=== PATIENT | female | born 1950 | race Caucasian/White ===

== ENCOUNTER → 2021-07-02 09:04 | Outpatient (CLI) | payer MEDICARE, SELFPAY ==
[2021-07-02 11:42] LABS: COVID19 -Nasal RAPID POSITIVE (Negative)
== END ==
PROVIDERS: Visit Provider Nurse Practitioner
DX: U07.1 COVID-19 (principal)
CPT/HCPCS: 87635

== ENCOUNTER → 2022-01-16 13:28 | Outpatient (CLI) | payer MEDICARE, SELFPAY ==
[2022-01-16 15:30] LABS: Influenza A - CEPHEID Flu A NEGATIVE (NEGATIVE); Influenza B - CEPHEID Flu B NEGATIVE (NEGATIVE)
[2022-01-16 15:54] LABS: COVID-19 CEPHEID PCR (VTM/NP) Negative (Negative)
== END ==
PROVIDERS: Visit Provider Physician Assistant
DX: J02.9 Acute pharyngitis, unspecified (principal); Z20.822 Contact with and (suspected) exposure to COVID-19
CPT/HCPCS: 0240U

== ENCOUNTER → 2023-05-10 09:48 | Outpatient (CLI) | payer MEDICARE, SELFPAY ==
--- NOTE | 2023-05-10 09:51 | DI.RAD.S_ITS ---
PROCEDURE: XR CERVICAL SPINE 2V OR 3V INDICATIONS: cervical spine pain left side worse TECHNIQUE: 3 view(s) of the cervical spine were acquired. COMPARISON: None. FINDINGS: Bones: No fractures or dislocations to the C7 level. The lateral masses of C1 appear intact on the odontoid view. No suspicious bony lesions. There are multilevel degenerative changes of the cervical spine with facet and uncovertebral arthropathy, disc height loss with degenerative endplate changes and spurring. This is most pronounced at C5-C6 and C6-C7. Possible minimal anterolisthesis of C6 on C7. Soft tissues: No prevertebral soft tissue swelling. IMPRESSION: Multilevel degenerative changes of the cervical spine as described above. Dictated by: Max Mae M.D. on 05/10/2023 at 10:44 Approved by: Max Mae M.D. on 05/10/2023 at 10:46
== END ==
PROVIDERS: PCP Family Medicine; Referring Provider Family Medicine; Visit Provider Family Medicine
DX: M47.812 Spondylosis without myelopathy or radiculopathy, cervical region (principal); M54.2 Cervicalgia
CPT/HCPCS: 72040

== ENCOUNTER → 2023-07-31 | Outpatient (CLI) | payer MEDICARE, SELFPAY ==
--- NOTE | 2023-07-31 07:55 | DI.MG.S_ITS ---
BILATERAL DIGITAL SCREENING MAMMOGRAM 3D/2D WITH CAD: 07/31/2023 CLINICAL: Routine screening. Baseline exam. No prior exams were available for comparison. Both breasts are heterogeneously dense, which may obscure small masses (category c / 51-75% glandular tissue). Current study was also evaluated with a Computer Aided Detection (CAD) system. No significant masses, calcifications, or other findings are seen in either breast. IMPRESSION: NEGATIVE There is no mammographic evidence of malignancy. A 1 year screening mammogram is recommended. Based on the Tyrer Cuzick model (a risk assessment model) the patient's lifetime risk is 7.7% and her 10 year risk is 6.3%. According to the ACR, ACS, and NCCN guidelines, an annual breast MRI exam along with mammogram is recommended if the patient's lifetime risk is 20% or greater. This exam was interpreted at Station ID: [id number]. NOTE: For mammograms, a report in lay terms will be sent to the patient. Approximately 15% of breast malignancies will not be visualized mammographically. In the management of a palpable breast mass, a negative mammogram must not discourage biopsy of a clinically suspicious lesion. Electronically Signed By: Enrrique low/kenneth:08/11/2023 17:32:16 letter sent: Normal Exam ACR BI-RADS Category 1: Negative 3341F
== END ==
LOC: MAMMO 07:54
PROVIDERS: PCP Family Medicine; Referring Provider Family Medicine; Visit Provider Family Medicine
DX: Z12.31 Encounter for screening mammogram for malignant neoplasm of breast (principal)
CPT/HCPCS: 77063; 77067

== ENCOUNTER → 2023-09-30 07:26 | Outpatient (CLI) | payer MEDICARE, SELFPAY ==
[2023-09-30 08:27] LABS: Add Manual Diff / Slide Review NO; Basophils Absolute Auto 100 /uL (0-100); Basophils Percent Auto 0.9 % (0-2); Eosinophils Absolute Auto 300 /uL (0-450); Eosinophils Percent Auto 3.9 % (2-4); Hemoglobin 14.4 g/dL (12.0-16.0); Lymphocytes Absolute Auto 2600 /uL (1100-4500); Lymphocytes Percent Auto 34.6 % (25-40); Mean Corpuscular HGB Conc 33.5 % (30-36); Mean Corpuscular Hemoglobin 31.3 PG (26-34); Mean Corpuscular Volume 93.5 fL (80-100); Monocytes Absolute Auto 400 /uL (0-900); Monocytes Percent Auto 5.6 % (3-14); Neutrophils Absolute Auto 4100 /uL (1500-7000); Platelet Count 272 X10^3/uL (150-400); Red Cell Distribution Width 13.1 % (11.6-14.8); White Blood Cell Count 7.4 X10^3/uL (4.5-11.0)
[2023-09-30 10:17] LABS: Alanine Aminotransferase 18 IU/L (<35); Albumin 4.2 g/dL (3.5-5.0); Albumin Globulin Ratio 1.6 (1.0-2.8); Alkaline Phosphatase 54 U/L (38-126); Aspartate Aminotransferase 21 IU/L (14-36); BUN Creatinine Ratio 28.8 (6-22); Bilirubin Total 1.2 mg/dL (0.2-1.3); Blood Urea Nitrogen 21 mg/dL (7-17); Calcium 9.7 mg/dL (8.4-10.2); Carbon Dioxide 30 mmol/L (22-32); Chloride 99 mmol/L (98-107); Cholesterol 254 mg/dL (140-199); Estimated Glomerular Filt Rate > 60 mL/min (>60); Globulin 2.7 g/dL (1.7-4.1); Glucose 101 mg/dL (80-110); HDL Cholesterol 80 mg/dL (40-60); HEMOLYSIS < 15 (0-50); LDL Cholesterol Calculated 156 mg/dL (<100); Potassium 4.3 mmol/L (3.4-5.1); Sodium 136 mmol/L (137-145); Total Protein 6.9 g/dL (6.3-8.2); Triglycerides 90 mg/dL (35-150)
[2023-09-30 10:52] LABS: TSH w/ Reflex to FT4 1.93 uIU/mL (0.47-4.68)
== END ==
PROVIDERS: PCP Family Medicine; Referring Provider Family Medicine; Visit Provider Family Medicine
DX: R43.8 Other disturbances of smell and taste (principal); U09.9 Post COVID-19 condition, unspecified; R43.0 Anosmia
CPT/HCPCS: 36415; 80053; 80061; 84443; 85025

== ENCOUNTER → 2024-04-10 14:34 | Outpatient (CLI) | payer MEDICARE, SELFPAY ==
--- NOTE | 2024-04-10 14:35 | DI.RAD.S_ITS ---
PROCEDURE: XR SHOULDER RT MIN 2V INDICATIONS: Right Shoulder Pain TECHNIQUE: 3 views of the shoulder were acquired. COMPARISON: None. FINDINGS: Bones: No fractures or dislocations. No suspicious bony lesions. 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 Visualized ribs appear intact. Soft tissues: No suspicious soft tissue calcifications. IMPRESSION: 1. No acute fracture or dislocation. 2. 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 Dictated by: Joseph Calero M.D. on 04/10/2024 at 16:19 Approved by: Joseph Calero M.D. on 04/10/2024 at 16:29
== END ==
PROVIDERS: PCP Family Medicine; Referring Provider Family Medicine; Visit Provider Family Medicine
DX: M19.011 Primary osteoarthritis, right shoulder (principal); M75.41 Impingement syndrome of right shoulder; M25.511 Pain in right shoulder; R53.83 Other fatigue; R06.09 Other forms of dyspnea
CPT/HCPCS: 73030

== ENCOUNTER → 2024-12-25 13:18 | Outpatient (CLI) | payer MEDICARE, SELFPAY ==
[2024-12-25 14:05] LABS: COVID-19 CEPHEID 4-PLEX PCR Negative (Negative); Influenza A - CEPHEID Flu A POSITIVE (NEGATIVE); Influenza B - CEPHEID Flu B NEGATIVE (NEGATIVE); Respiratory Syncytial Virus Negative (Negative)
== END ==
PROVIDERS: PCP Family Medicine; Visit Provider Physician Assistant
DX: R05.1 Acute cough (principal)
CPT/HCPCS: 0241U

== ENCOUNTER 2025-06-08 13:21 | Emergency (ER) | payer MEDICARE, SELFPAY ==
[2025-06-08] VITALS (11 sets, daily range): BP systolic 167–196; BP diastolic 75–107; PULSE 60–82; RESP 20; TEMP 36.6; O2SAT 97–100; BMI 25.0
--- NOTE | 2025-06-08 14:27 | DI.CT.S_ITS ---
PROCEDURE: CT HEAD/BRAIN WO CON INDICATIONS: headache TECHNIQUE: Noncontrast 4.5 mm thick angled axial sections acquired from the foramen magnum to the vertex, with coronal and sagittal reformats. For radiation dose reduction, the following was used: automated exposure control, adjustment of mA and/or kV according to patient size. COMPARISON: None. FINDINGS: Image quality: Diagnostic. CSF spaces: Basal cisterns are patent. No extra-axial fluid collections. The ventricles are symmetric in size and shape. Brain: No intracranial bleeds or mass effect. There is cerebral volume loss, with resultant ventricular and sulcal prominence. There are periventricular and deep white matter chronic small vessel ischemic changes. There is intracranial internal carotid artery atherosclerosis. Skull and face: Calvarium and visualized facial bones appear intact, without suspicious lesions. Sinuses: Visualized sinuses and mastoids are clear except for what appears to be a moderate-sized mucous retention cyst at the posterior right maxillary sinus. No associated air-fluid level is present. IMPRESSION: No acute intracranial pathology. Posterior right maxillary sinus apparent mucous retention cyst, without air- fluid level. Dictated by: Bartolo Rivera M.D. on 06/08/2025 at 14:42 Approved by: Bartolo Rivera M.D. on 06/08/2025 at 14:43
--- NOTE | 2025-06-08 16:42 | ED.HA ---
HPI - Headache General Chief Complaint: Headache Stated Complaint: potential brain bleed and MRI- sent from [facility] Time Seen by Provider: 06/08/25 14:59 Mode of arrival: Ambulatory History of Present Illness HPI Narrative: 75-year-old woman on no medications and prefers to continue that way comes in complaining of the worst headache of her life experienced after a coughing spell approximately 4-5 days ago. She has had continued headache posterior cerebellar portion of her head. She does not typically have headaches. She did take some ibuprofen 2-3 days ago and found that it helps somewhat. She was instructed to follow up in the emergency department. She is not noting nausea, any neurologic changes, no visual changes, no paresthesias or weakness. She has been able to sleep she does note that the headache has persisted over the week. 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 Able to give a complete and coherent history. Well-nourished well-developed HEENT: Moist mucous membranes, normal sclera with reactive pupils, Neck: No tenderness with palpation or rotation Respiratory: Lungs are clear to auscultation, no wheezing no rales no rhonchi. Full and symmetrical air movement Cardiac: Regular rate and rhythm no murmurs no bruits Abdomen: Soft, nontender, no rebound or guarding, no flank pain Skin: Warm and dry, no rashes Neurologic: Grossly neurologically intact with no obvious asymmetries or abnormalities Extremities: No trauma, well perfused Psych: Cooperative, appropriate insight and affect Course Orders Ordered: ED Orders 06/08/25 14:27 CT head/brain wo con Stat Vital Signs Vital signs: Vital Signs - 8 hr 06/08/25 14:10 Temperature 98 F Pulse Rate 60 Respiratory Rate 20 Blood Pressure 182/81 H Pulse Oximetry 100 Oxygen Delivery Method Room Air MDM - Headache MDM Narrative Medical decision making narrative: 4-5 days post worst headache of her life experienced after a coughing episode now with continued dull posterior headache Possibilities include stroke, herald bleed, aneurysm, intracranial hemorrhage, meningitis, acute neck strain Exam is entirely benign. She has no pain behaviors, neurologic exam is entirely unremarkable. No neck pain or spasm on exam Initial CT scan of the head is negative. This does not rule out subarachnoid hemorrhage or cerebellar stroke. MRI of the brain does not show acute abnormalities including stroke aneurysm or bleeding Discussed options with patient and she absolutely would prefer to proceed next with an MRI. Declines multiple medication options to help with her headache pain. Blood pressure is trending up which I think is partly pain, the fact that she has been waiting for an extended period of time increasing anxiety. We talked about treating each of these to help lower her blood pressure so that we will not creating worse headache. She was finally agreeable to Tylenol and fluids. Reviewed negative MRI findings. Did discuss that the truly definitive diagnosis and gold standard would be a lumbar puncture at this point for her continued headache. With shared decision-making and given that the severe headache started with a coughing spell and is now limited to more musculoskeletal pain at occipital insertion sites, we chose to not proceed with lumbar puncture. Patient is safe for discharge Discharge Plan Departure Patient Disposition: Home Clinical Impression: Headache, Blood pressure elevated without history of HTN Instructions: DI for Headache Activity Restrictions/Additional Instructions: Thank you for coming in today The CT scan of your brain as well as the MRI of your brain show no masses, tumors no obvious bleeding and no reasons for further imaging or hospitalization. We did discuss the very small possibility that 5 days after the initial event, there still could have been a small amount of blood that we are not going to see on imaging studies and the gold standard way to diagnose this would be to do a lumbar puncture. Typically with a headache of this type you are going to have diffuse pain all over rather than pain at the back of your neck. I suspect that the significant coughing spell pulled some muscles in the back of your neck which is causing your continued headache pain. You noted that ibuprofen helped a couple of days ago, fluids and Tylenol help today. It is okay to continue to use either Tylenol or ibuprofen. Ice and heat maybe helpful. If you find that you are getting worse or develop any new symptoms, please feel free to return to the emergency department for further evaluation. Prescriptions: No Action No Known Home Medications Referrals: Naman Richmond MD [Primary Care Provider, Family Practice] Stand Alone Forms: Patient Portal/API
--- NOTE | 2025-06-08 16:52 | DI.MRI.S_ITS ---
PROCEDURE: MR HEAD/BRAIN WO CON INDICATIONS: persistent POWERS, ? post circulation stroke, TECHNIQUE: Non-contrast axial T1 spin echo, axial T2 fast spin echo, sagittal and axial FLAIR, coronal T2 fast spin echo, axial gradient echo, axial diffusion and ADC through the brain. COMPARISON: [facility], CT, CT HEAD/BRAIN WO CON, 06/08/2025, 14:35. FINDINGS: Image quality: Excellent. CSF spaces: Ventricles appear symmetric in size and shape. Basal cisterns are patent. No extra-axial fluid collections. Brain: No intracranial bleeds or mass effects. There is cerebral volume loss for age. There are periventricular and deep white matter chronic small vessel ischemic changes. Brainstem appears normal. Diffusion-weighted images show no acute infarct. No chronic ischemic insults. Normal intravascular flow voids are present. Symmetric calcification can be seen involving the basal ganglia, which is considered to be normal for age. Skull and face: Calvarial bone marrow is normal in signal. Orbits are normal. Sinuses: There is a likely mucous retention cyst posterior right maxillary sinus. Mild mucosal thickening can be seen within the paranasal sinuses. No abnormal fluid is seen within the mastoid air cells. IMPRESSION: No imaging explanation is found for this patient's presenting symptoms. No findings of acute or subacute infarction can be seen. No prior territorial infarct can be seen. Dictated by: Todd Marques M.D. on 06/08/2025 at 17:41 Approved by: Todd Marques M.D. on 06/08/2025 at 17:43
[2025-06-08] MEDS: SODIUM CHLORIDE 0.9% 1,000 ML 1000 ML IV (17:35)
[2025-06-08 17:50] LABS: Add Manual Diff / Slide Review NO; Hematocrit 42.9 % (36-46); Hemoglobin 14.9 g/dL (12.0-16.0); Lymphocytes Absolute Auto 2900 /uL (1100-4500); Mean Corpuscular HGB Conc 34.7 % (30-36); Mean Corpuscular Hemoglobin 31.7 PG (26-34); Mean Corpuscular Volume 91.5 fL (80-100); Platelet Count 303 X10^3/uL (150-400)
[2025-06-08 17:56] LABS: Alanine Aminotransferase 25 IU/L (<35); Albumin 5.0 g/dL (3.5-5.0); Albumin Globulin Ratio 1.9 (1.0-2.8); Alkaline Phosphatase 74 U/L (38-126); Blood Urea Nitrogen 13 mg/dL (7-17); Calcium 9.8 mg/dL (8.4-10.2); Carbon Dioxide 26 mmol/L (22-32); Chloride 101 mmol/L (98-107); Estimated Glomerular Filt Rate > 60 mL/min (>60); Globulin 2.7 g/dL (1.7-4.1); Glucose 99 mg/dL (70-99); HEMOLYSIS < 15 (0-50); Potassium 4.1 mmol/L (3.4-5.1); Sodium 136 mmol/L (137-145); Total Protein 7.7 g/dL (6.3-8.2)
[2025-06-08] MEDS: ACETAMINOPHEN 325 MG TABLET 975 MG PO (18:36)
== END 2025-06-08 20:01 | disposition home or self-care (01) ==
PROVIDERS: Emergency Provider Emergency Medicine; PCP Family Medicine
DX: R03.0 Elevated blood-pressure reading, without diagnosis of hypertension (principal); R51.9 Headache, unspecified
CPT/HCPCS: 36415; 70450; 70551; 80053; 85025; 96360; 96361; 99284

== ENCOUNTER → 2025-06-15 07:35 | Outpatient (CLI) | payer MEDICARE, SELFPAY ==
--- NOTE | 2025-06-15 07:37 | DI.MRI.S_ITS ---
PROCEDURE: MR CERVICAL SPINE WO CON INDICATIONS: severe and chronic neck pain TECHNIQUE: Noncontrast sagittal T1 spin echo and T2 fast spin echo, sagittal STIR, foraminal oblique sagittal T2 fast spin echo, and axial gradient echo or T2 fast spin echo through the cervical spine. COMPARISON: Correlation is made with cervical spine plain films, 05/10/2023. FINDINGS: Image quality: Diagnostic, with note made of motion artifact. Alignment and Curvature: There is minimal anterolisthesis seen at the C4-C5 level and the C6-C7 level. There is overall mild straightening of the normal cervical lordosis. Bone Marrow: Marrow demonstrates normal overall signal. Spinal Cord: Visualized spinal cord has normal size and signal. No cerebellar tonsillar herniation. Paraspinous Soft Tissues: No paravertebral masses. Prevertebral soft tissues are normal in thickness. C2-C3: The disc height is well-preserved. Loss of disc signal is seen at this level. A mild degree of generalized disc osteophyte complex is seen. There is [id number] right-sided and minimal left-sided facet hypertrophy. No significant neural foraminal or central canal narrowing can be seen. C3-C4: The disc height is well-preserved. Loss of disc signal is seen at this level. Mild to moderate disc osteophyte complex is seen, with a central disc osteophyte protrusion. There is at least moderate right-sided and mild to moderate left- sided facet hypertrophy. Moderate bilateral neural foraminal narrowing is seen. Moderate central canal narrowing is seen. There is associated mass effect upon the ventral spinal cord. C4-C5: [id number] loss of disc height and disc signal can be seen. Mild to moderate disc osteophyte complex is seen. There is moderate to severe right- sided and moderate left-sided facet hypertrophy. Moderate to severe right-sided and moderate left-sided neural foraminal narrowing can be seen. Moderate central canal narrowing is seen. There is associated mass effect upon the ventral spinal cord. C5-C6: Moderate loss of disc height is seen. Loss of disc signal is seen. Moderate generalized disc osteophyte complex is seen, which is eccentric to the left. There is a superimposed central disc osteophyte protrusion. Moderate facet joint hypertrophy is seen. There is moderate to severe bilateral neural foraminal narrowing seen. Moderate to severe central canal narrowing is seen. There is associated mass effect upon the ventral spinal cord. C6-C7: Mild loss of disc height is seen. Loss of disc signal is seen. Moderate generalized disc osteophyte complex is seen. There is a superimposed central disc osteophyte protrusion. There is mild right-sided and at least moderate left- sided facet hypertrophy. There is at least moderate bilateral neural foraminal narrowing. Mild to moderate central canal narrowing is seen, with mild mass effect upon the ventral spinal cord. C7-T1: No significant abnormality is seen. IMPRESSION: Multiple levels of significant cervical spine degenerative change can be seen, which are overall worst at the C5-C6 level. Dictated by: Todd Marques M.D. on 06/15/2025 at 13:03 Approved by: Todd Marques M.D. on 06/15/2025 at 13:08
== END ==
LOC: MRI 07:36
PROVIDERS: PCP Family Medicine; Referring Provider Family Medicine; Visit Provider Family Medicine
DX: M47.812 Spondylosis without myelopathy or radiculopathy, cervical region (principal); M54.2 Cervicalgia; G89.29 Other chronic pain
CPT/HCPCS: 72141